=== PATIENT | female | born 2000 | race Caucasian/White ===

== ENCOUNTER → 2022-02-10 13:07 | Outpatient (CLI) | payer BC, SELFPAY ==
--- NOTE | ~2022-02-10 | US_ITS ---
EXAMINATION: US transvaginal DATE: 02/10/2022 13:35 INDICATION: Polycystic ovarian disease TECHNIQUE: Multiple transabdominal and endovaginal sonographic images of the pelvis were obtained. COMPARISON: None. FINDINGS: The uterus measures 6.5 x 3.5 x 3.4 cm. The endometrial complex measures 3 mm in thickness. The righ t ovary measures 3.3 x 2.3 x 2.2 cm. The left ovary measures 3.2 x 2.0 x 1.7 cm. There is normal vasc ular flow in the ovaries. There are multiple subcentimeter anechoic ovarian cysts at both the left an d right ovaries which would be consistent with provided history of cystic ovarian disease. There is n o free fluid in the pelvis. IMPRESSION: 1. Multiple subcentimeter anechoic cysts at the bilateral ovaries which can be seen with polycystic o varian disease. Reviewed, dictated and finalized at location B. IMPRESSION: 1. Multiple subcentimeter anechoic cysts at the bilateral ovaries which can be seen with polycystic ovarian disease.
== END ==
PROVIDERS: PCP Internal Medicine Endocrinology, Diabetes & Metabolism; Visit Provider Internal Medicine Endocrinology, Diabetes & Metabolism
DX: E28.2 Polycystic ovarian syndrome (principal)
CPT/HCPCS: 76830

== ENCOUNTER 2022-04-06 15:28 | Emergency (ER) | payer BC, SELFPAY ==
--- NOTE | 2022-04-06 15:35 | ED.URI ---
HPI - URI/Sore Throat General Chief Complaint: Upper Respiratory Infection Stated Complaint: swollen throat; trouble breathing Time Seen by Provider: 04/06/22 15:35 Source: patient and RN notes reviewed Mode of arrival: ambulatory Limitations: no limitations History of Present Illness HPI Narrative: 21 y/o female presented for c/o sore throat and feeling like throat is closing up over the last 2 days. Endorses difficulty breathing. States yesterday she had trouble swallowing solid food, today she feels it is getting harder to swallow liquids. Currently maintaining secretions. Denies wheezing but unable to speak full sentences. Denies significant past medical/surgical history. Allergy to Sulfa, denies food allergies or contact with anything new. Denies sick contacts. Taking ibuprofen without relief. MD elicited complaint: cough Related Data Home Medications Medication Instructions Recorded Confirmed Lactobacillus rhamnosus GG 5 1 tablet PO DAILY 11/02/21 billion cell chewable tablet ([employer]) cetirizine 10 mg tablet (Zyrtec) 10 mg PO DAILY PRN 11/02/21 clomipramine 50 mg capsule 50 mg PO DAILY 11/02/21 ergocalciferol (vitamin D2) 1,250 1,250 mcg PO 3XW 11/02/21 mcg (50,000 unit) capsule methylphenidate HCl 30 mg biphasic 36 mg PO DAILY 11/02/21 50-50 capsule,extended release (Ritalin LA) norethindrone (contraceptive) 0.35 0.35 mg PO DAILY 11/02/21 mg tablet omega-3 fatty acids-fish oil 340 1 cap PO DAILY 11/02/21 mg-1,000 mg capsule (Fish Oil) venlafaxine 150 mg 150 mg PO DAILY 11/02/21 capsule,extended release 24 hr (Effexor XR) Allergies Allergy/AdvReac Type Severity Reaction Status Date / Time Sulfa (Sulfonamide Allergy Rash Verified 04/06/22 15:53 Antibiotics) Review of Systems Review of Systems: CONSTITUTIONAL: Denies malaise, chills, sweats, fever EYES: Denies visual changes, redness, or discharge ENT: denies rhinorrhea, congestion, sinus pain, otalgia CARDIOVASCULAR: Denies chest pain, palpitations, edema RESPIRATORY: Denies wheezing or cough GASTROINTESTINAL: Denies abdominal pain, nausea, vomiting, diarrhea SKIN: Denies rash or itching MUSCULOSKELETAL: Denies myalgia NEUROLOGIC: Denies headache [facility] Past Medical History Medical History Allergies Anxiety Thyroid disorder Surgical History Surgical History History of placement of ear tubes Family History Family History Mother Thyroid disorder Crohn's disease Grandparent Hypertension Diabetes mellitus Cancer Heart disease Thyroid disorder HHT (hereditary hemorrhagic telangiectasia) Social History Social History Smoking status: Never smoker Alcohol intake: current Substance use: never Exam Narrative: GENERAL: Ill-appearing, no acute distress. EYES: conjunctivae clear ENT: Mucous membranes moist. Oropharynx erythematous, tonsillar swelling 3+ with exudate, right touching uvula; Pharyngeal swelling noted. Muffled voice. No tripod positioning. no drooling, no trismus, uvula midline. NECK: Right posterior cervical and bilateral anterior cervical lymphadenopathy CHEST: Clear to auscultation, breath sounds equal. HEART: Tachycardic, regular rhythm. No murmur heard. SKIN: Warm, moist NEURO: Alert and oriented x3. Course Course Emergency Course: Patient is aware of diagnosis, understands and agrees to treatment plan. Anticipatory guidance given. Portions of this record may have been created with voice recognition software Level of Care: Express Care Visit Vital Signs Vital signs: reviewed Transfer Transfer rationale: Pt is agreeable to transfer. Requests transfer to [facility] via private vehicle. Declines ambulance. Risks o
[2022-04-06 15:39] VITALS: BP 135/81; PULSE 119; RESP 24; TEMP 36.4; O2SAT 100
[2022-04-06] MEDS: methylPREDNISolone SOD SUCC 125 MG VIAL IM (15:51)
--- NOTE | 2022-04-06 16:03 | PC.NURSE ---
PT IS AGREEABLE TO TRANSFER, DUE DILIGENCE COORDINATOR HAS CALLED [facility] IN [place] PT REQUESTED. PT IS DECLINING EMS AT THIS TIME, SHE IS SPEAKING WITH FAMILY ON PHONE AND WILL NOTIFY OF FINAL DECISION. DELAY IN TRANSFER DUE TO THIS. WILL CONTINUE TO MONITOR.
--- NOTE | 2022-04-06 16:16 | PC.NURSE ---
PT REPORTS HER FATHER WILL TRANSPORT, SHE IS AWARE OF THE RISKS OF TRANSPORTING WITHOUT EMS, LEADING UP TO AND INCLUDING . AWAITING ARRIVAL OF FATHER AT THIS TIME. PT IS UNSURE OF WHICH ER THEY WILL GO TO AT PRESENT. WILL CONTINUE TO MONITOR.
[2022-04-06 16:28] VITALS: PULSE 120; RESP 24; O2SAT 99
--- NOTE | 2022-04-06 16:29 | PC.NURSE ---
FATHER ARRIVES, PT IS NOW GOING TO [facility] PER POV WITH FATHER. [facility] WAS NOTIFIED. PT AND FATHER ADVISED TO CALL 911 IF PT SX DECLINE EN ROUTE TO [facility]. PT AND FATHER ARE AWARE OF RISKS TO POV TRANSFER.
== END 2022-04-06 16:28 | disposition short-term general hospital (02) ==
PROVIDERS: Emergency Provider Nurse Practitioner Family; PCP Internal Medicine
DX: J39.2 Other diseases of pharynx (principal); F41.9 Anxiety disorder, unspecified
CPT/HCPCS: 87081; 87880; 96372; 99213; G0463; J2930

== ENCOUNTER 2022-04-06 16:44 | Emergency (ER) | payer BC, SELFPAY ==
--- NOTE | ~2022-04-06 | CT_ITS ---
EXAMINATION: CT soft tissue neck w con DATE: 04/06/2022 17:52 INDICATION: TECHNIQUE: Computed tomography (CT) of the neck was performed with 75 mL Omnipaque-350 intravenous co ntrast. Automated exposure control and iterative reconstruction technique were employed. The dose-mike gth product was 403.16 mGy-cm. COMPARISON: None FINDINGS: The thyroid gland is unremarkable. Bilateral submandibular gland enlargement, greater on the right. E nlarged adenoids. Enlarged somewhat heterogeneous bilateral palatine tonsils, greater on the right. N o striation or abscess. The parotid glands are symmetric. Enlarged submandibular lymph nodes. There are no masses identified. The superior mediastinum is unremarkable. The airway is unremarkable. Parapharyngeal and pre-glottic fat planes are preserved. Normal enhancing arteries. The orbits are unremarkable. Visualized sinuses and mastoid air cells are well aerated. Lung apices are efren r. Reversed cervical lordosis as can occur with positioning or muscle spasm. IMPRESSION: 1. No tonsillar or peritonsillar abscess detected. 2. Enlarged adenoids, bilateral palatine tonsils, and submandibular glands, with mild submandibular l ymphadenopathy. Reviewed, dictated and finalized at location K. STRENGTH INSPECTOR IMPRESSION: 1. No tonsillar or peritonsillar abscess detected. 2. Enlarged adenoids, bilateral palatine tonsils, and submandibular glands, wit h mild submandibular lymphadenopathy.
[2022-04-06 16:50] VITALS: BP 112/86; PULSE 103; RESP 22; TEMP 36.7; O2SAT 99
--- NOTE | 2022-04-06 16:50 | ED.GENADULT ---
HPI - General Adult General Chief complaint: Unspecified Stated complaint: PERITONSILLER ABSCESS Time Seen by Provider: 04/06/22 16:48 Source: patient Mode of arrival: ambulatory Limitations: no limitations History of Present Illness HPI narrative: Patient is a 21-year-old female who presents the ED with report of a sore throat. Patient reports she has had a sore and scratchy throat for the past 4 days. She started noticing swelling, more in the right side of her throat, yesterday. She reported having some difficulty swallowing and breathing today so she went to an urgent care today where she tested negative for strep throat. There was concern for a peritonsillar abscess and she was sent here for further evaluation. Patient given Solu-Medrol 125 mg prior to being sent here. She does report improvement already of her swelling. She has also had a mild cough, but denies nausea, vomiting, fevers, abdominal pain. Related Data Home Medications Medication Instructions Recorded Confirmed Lactobacillus rhamnosus GG 5 1 tablet PO DAILY 11/02/21 04/06/22 billion cell chewable tablet ([employer] Pro[employer]otics) cetirizine 10 mg tablet (Zyrtec) 10 mg PO DAILY PRN Allergic 11/02/21 04/06/22 Reaction clomipramine 50 mg capsule 50 mg PO DAILY 11/02/21 04/06/22 ergocalciferol (vitamin D2) 1,250 1,250 mcg PO 3XW 11/02/21 04/06/22 mcg (50,000 unit) capsule methylphenidate HCl 30 mg biphasic 36 mg PO DAILY 11/02/21 04/06/22 50-50 capsule,extended release (Ritalin LA) norethindrone (contraceptive) 0.35 0.35 mg PO DAILY 11/02/21 04/06/22 mg tablet omega-3 fatty acids-fish oil 340 1 cap PO DAILY 11/02/21 04/06/22 mg-1,000 mg capsule (Fish Oil) venlafaxine 150 mg 150 mg PO DAILY 11/02/21 04/06/22 capsule,extended release 24 hr (Effexor XR) Allergies Allergy/AdvReac Type Severity Reaction Status Date / Time Sulfa (Sulfonamide Allergy Rash Verified 04/06/22 16:50 Antibiotics) Review of Systems Review of Systems: CONSTITUTIONAL: Denies fever, chills, or sweats. ENT: Reports sore throat, mild dysphagia, R sided neck swelling. CARDIOVASCULAR: Denies chest pain. RESPIRATORY: Reports cough, mild dyspnea. GASTROINTESTINAL: Denies abdominal pain, nausea, vomiting. All systems reviewed & are unremarkable except as noted in HPI and below PMFSH Past Medical History Medical History Allergies Anxiety Thyroid disorder Surgical History Surgical History History of placement of ear tubes Family History Family History Mother Thyroid disorder Crohn's disease Grandparent Hypertension Diabetes mellitus Cancer Heart disease Thyroid disorder HHT (hereditary hemorrhagic telangiectasia) Social History Social History Smoking status: Never smoker Alcohol intake: current Substance use: never Exam Narrative: GENERAL: Well appearing, well-nourished, non-toxic, in no acute distress. HEAD: Normocephalic, atraumatic. EYES: PERRLA/EOMI, conjunctiva clear. ENT: Moderate posterior pharynx erythema. Moderate tonsillar hypertrophy, worse on right. Right tonsil nearly touching uvula. Uvula still appears midline. No significant tonsillar exudate. No stridor. No drooling. Maintaining secretions. NECK: Supple. Moderate amount of anterior cervical and submandibular lymphadenopathy, minimally tender. No masses. RESPIRATORY: Airway patent, respirations nonlabored. Clear to auscultation bilaterally, no rales, rhonchi, wheezing. CARDIOVASCULAR: Mild tachycardia with regular rhythm without murmurs, rubs, or gallops. Radial pulses 2+ and equal bilaterally. ABDOMINAL: Soft, nontender, nondistended, no hepatosplenomegaly. Normoactive BS. MUSCULOSKELETAL: Moves all extremities. Strength/R
[2022-04-06 17:01] VITALS: BP 119/88; PULSE 111; RESP 18; O2SAT 99
[2022-04-06] MEDS: AMPICILLIN SULB 3 GM/NS 100 ML 3 GM/100 ML VIAL IVPB (17:10)
[2022-04-06] MEDS: SODIUM CHLORIDE 0.9% IV 1,000 ML 999 ML IV CONT (17:13)
[2022-04-06 17:19] LABS: Basophils Absolute Auto 0.1 K/mm3 (0.0-0.1); Basophils Percent Auto 0.9 % (0.2-1.2); Hematocrit 47.2 % (37.0-47.0); Immature Granulocyte Absolute 0.04 K/mm3 (0.00-0.031); Immature Granulocyte Percent A 0.3 % (0-0.5); Lymphocytes Absolute Auto 7.54 K/mm3 (0.9-3.2); Lymphocytes Percent Auto 59.4 % (18.3-44.2); Mean Corpuscular HGB Conc 31.8 g/dl (32-36); Mean Corpuscular Hemoglobin 28.4 pg (26-34); Mean Corpuscular Volume 89.4 fl (80-100); Mean Platelet Volume 9.3 fl (7.4-10.4); Monocytes Absolute Auto 0.8 K/mm3 (0.1-0.6); Monocytes Percent Auto 6.3 % (2.6-8.5); Neutrophils Absolute Auto 4.2 K/mm3 (1.3-6.7); Neutrophils Percent Auto 33.1 % (45.5-73.1); Platelet Count Result 228 k/mm3 (150-375); Red Blood Count 5.28 M/mm3 (4.2-5.4); Red Cell Distribution Width 14.4 % (11.5-14.5); White Blood Count 12.7 K/mm3 (4.5-10.0)
[2022-04-06 17:29] LABS: Alanine Aminotransferase 338 U/L (6-35); Albumin Level 4.7 g/dL (3.5-5.1); Alkaline Phosphatase 206 U/L (38-126); Anion Gap 7 mmol/L (8-16); Aspartate Amino Transferase 183 U/L (14-36); Bilirubin,Total 0.5 mg/dL (0.2-1.3); Blood Urea Nitrogen 12 mg/dL (7-17); Calcium 9.7 mg/dL (8.4-10.2); Carbon Dioxide 33 mmol/L (22-30); Chloride 102 mmol/L (98-107); Estimated CRCL calculation 80 ml/min; Estimated Glomerular Filt Rate > 60; Glucose 99 mg/dL (65-110); Potassium 3.8 mmol/L (3.4-5.0); Sodium 142 mmol/L (137-145)
[2022-04-06 17:31] VITALS: BP 110/81; PULSE 98; RESP 21; O2SAT 99
[2022-04-06 17:43] LABS: Atypical Lymphocytes Present; Platelet Estimate Adequate (Adequate); Schistocytes None Seen (NORMAL)
[2022-04-06 19:00] VITALS: BP 95/69; PULSE 82; RESP 22; O2SAT 96
[2022-04-06 19:36] LABS: Influenza A QL RT-PCR Negative (Negative); Influenza B QL RT-PCR Negative (Negative); SARS-CoV-2 RNA PCR Negative
[2022-04-06 20:14] LABS: Monoscreen Positive (Negative); Negative Monotest Control Negative (Negative); Positive Monotest Control Positive (Positive)
[2022-04-06 20:25] VITALS: BP 109/79; PULSE 88; RESP 20; O2SAT 96
== END 2022-04-06 20:27 | disposition home or self-care (01) ==
PROVIDERS: Emergency Provider Physician Assistant; PCP Internal Medicine
DX: J03.90 Acute tonsillitis, unspecified (principal); R59.9 Enlarged lymph nodes, unspecified; R74.01 Elevation of levels of liver transaminase levels; Z20.822 Contact with and (suspected) exposure to COVID-19; E07.9 Disorder of thyroid, unspecified; F41.9 Anxiety disorder, unspecified
CPT/HCPCS: 36415; 70491; 80053; 81025; 85025; 86308; 87081; 87636; 87880; 96365; 96372; 99284; J0295; J2930; J7030; Q9967

== ENCOUNTER 2022-04-12 08:46 | Outpatient (CLI) | payer BC, SELFPAY ==
[2022-04-12 18:40] LABS: Hematocrit 41.9 % (37.0-47.0); Hemoglobin 13.4 g/dL (12.0-15.0); Mean Corpuscular Hemoglobin 27.8 pg (26-34); Mean Corpuscular Volume 86.9 fl (80-100); Mean Platelet Volume 9.2 fl (7.4-10.4); Platelet Count Result 304 k/mm3 (150-375); Red Blood Count 4.82 M/mm3 (4.2-5.4); Red Cell Distribution Width 13.7 % (11.5-14.5); White Blood Count 7.5 K/mm3 (4.5-10.0)
[2022-04-12 20:08] LABS: Band Neutrophils Percent 2 % (0-6); Lymphocytes Absolute Manual 3.97 K/mm3 (1.1-4.5); Monocytes Absolute Manual 0.82 K/mm3 (0.1-0.90); Monocytes Percent Manual 11 % (3-9); Neutrophils Percent Manual 34 % (46-73); Total Cells Counted 100
[2022-04-12 20:09] LABS: Platelet Estimate Adequate (Adequate); Schistocytes None Seen (NORMAL)
[2022-04-12 20:10] LABS: Atypical Lymphocytes Present
[2022-04-12 22:17] LABS: Alanine Aminotransferase 104 U/L (6-35); Albumin Level 4.1 g/dL (3.5-5.1); Alkaline Phosphatase 106 U/L (38-126); Anion Gap 6 mmol/L (8-16); Aspartate Amino Transferase 58 U/L (14-36); Bilirubin,Total 0.3 mg/dL (0.2-1.3); Blood Urea Nitrogen 12 mg/dL (7-17); Calcium 8.6 mg/dL (8.4-10.2); Carbon Dioxide 29 mmol/L (22-30); Chloride 100 mmol/L (98-107); Estimated Glomerular Filt Rate > 60; Glucose 88 mg/dL (65-110); Sodium 135 mmol/L (137-145)
== END 2022-04-12 08:47 | disposition home or self-care (01) ==
LOC: ANHGOSHLAB 08:48
PROVIDERS: PCP Internal Medicine; Visit Provider Clinical Nurse Specialist
DX: B27.90 Infectious mononucleosis, unspecified without complication (principal)
CPT/HCPCS: 36415; 80053; 85025

== ENCOUNTER 2023-09-22 14:10 | Outpatient (CLI) | payer OTHER, BC, SELFPAY ==
--- NOTE | ~2023-09-22 | US_ITS ---
EXAMINATION: US transvaginal DATE: 09/22/2023 15:16 INDICATION: Amenorrhea. TECHNIQUE: Multiple transvaginal sonographic images of the pelvis were obtained. COMPARISON: None. FINDINGS: The uterus measures 7.6 x 3.7 x 3.5 cm. There is no free fluid in the pelvis. The endometrial complex measures 8 mm in thickness. The right ovary measures 2.9 x 4.8 x 2.8 cm. The left ovary measures 3.4 x 2.3 x 2.7 cm. There is normal vascular flow in the ovaries. IMPRESSION: 1. Normal pelvis. Reviewed, dictated and finalized at location E. IMPRESSION: 1. Normal pelvis.
--- NOTE | ~2023-09-22 | US_ITS ---
EXAMINATION: US thyroid DATE: 09/22/2023 15:16 INDICATION: Thyroid nodules. TECHNIQUE: Multiple ultrasound images of the thyroid were obtained. COMPARISON: Neck CT 04/06/2022 FINDINGS: The right thyroid lobe measures 5.9 x 1.5 x 1.2 cm. The left thyroid lobe measures 5.4 x 1.1 x 1.6 c m. In the left thyroid lobe, there is a 2 mm nodule. IMPRESSION: 1. Small thyroid nodule, likely not clinically significant. No follow-up is needed. Reviewed, dictated and finalized at location E. IMPRESSION: 1. Small thyroid nodule, likely not clinically significant. No follow-up is nee ded.
== END 2023-09-22 14:11 ==
PROVIDERS: PCP Internal Medicine; Visit Provider Internal Medicine Endocrinology, Diabetes & Metabolism
DX: N91.2 Amenorrhea, unspecified (principal); E04.1 Nontoxic single thyroid nodule
CPT/HCPCS: 76536; 76830

== ENCOUNTER 2024-03-31 14:38 | Emergency (ER) | payer OTHER, SELFPAY ==
[2024-03-31 15:50] VITALS: BP 113/68; PULSE 92; RESP 18; TEMP 36.4; O2SAT 99
--- NOTE | 2024-03-31 16:22 | ED.URI ---
HPI - URI/Sore Throat General Chief Complaint: Upper Respiratory Infection Stated Complaint: flu symptoms Time Seen by Provider: 03/31/24 16:20 Source: patient, RN notes reviewed and old records reviewed Mode of arrival: ambulatory Limitations: no limitations History of Present Illness HPI Narrative: 23 year old female presents to [facility] care with complaints of fever, chills, body aches, nausea, sore throat with white spots since Monday with fevers up to 104F. Patient reports that she has been taking Tylenol and Ibuptofen for her symptoms. Patient reports that she has had history of past strep throat. MD elicited complaint: fever, sore throat and other (body aches, chills weakness nausea) Onset (ago): day(s) (3) Pain scale (0-10): 4 Able to tolerate fluids by mouth: Yes Treatments prior to arrival: acetaminophen and ibuprofen Related Data Allergies Allergy/AdvReac Type Severity Reaction Status Date / Time methylprednisolone Allergy Mild Blurry Verified 03/31/24 15:59 Vision Sulfa (Sulfonamide Allergy Rash Verified 03/31/24 15:59 Antibiotics) Review of Systems Review of Systems: CONSTITUTIONAL: reports malaise, chills, sweats, or fever. EYES: Denies visual changes, redness, or discharge. ENT: Reports rhinorrhea, congestion, no sinus pain, no otalgia and positive for sore throat. CARDIOVASCULAR: Denies chest pain, palpitations, or edema. RESPIRATORY: Reports no acute cough.? Denies dyspnea. GASTROINTESTINAL: Denies abdominal pain,reports some nausea, no vomiting,no diarrhea SKIN: Denies rash or itching. MUSCULOSKELETAL: Reports myalgia. NEUROLOGIC: Denies headache. All systems reviewed & are unremarkable except as noted in HPI and below PMFSH Past Medical History Medical History Strep throat Thyroid disorder Anxiety Allergies Surgical History Surgical History History of placement of ear tubes Family History Family History Mother Thyroid disorder Crohn's disease Grandparent Hypertension Diabetes mellitus Cancer Heart disease Thyroid disorder HHT (hereditary hemorrhagic telangiectasia) Social History Social History Smoking status: Never smoker Alcohol intake: current Substance use: never Lack of Transportation: No Lack of Food: Never True Current Housing: I Have Housing Concerned About Future Housing: No Difficulty Paying Gas/Electric Bills: No Difficulty Paying for Meds: No Currently Unemployed: No Education: High School Diploma/GED Difficulty w/ Childcare or Family Care: No Comments At time of signature, agree with nursing past medical, surgical, social and family history. There is no relevant family history pertinent to the presenting complaint Exam Narrative: GENERAL: Ill appearing, well-nourished, and in no acute distress. HEAD: Normocephalic EYES: PERRLA, conjunctivae clear ENT: Nares clear, turbinates edematous and erythematous, clear discharge. Mucous membranes moist. TM pearly jain with dull light reflex bilaterally; no tragal tenderness. Oropharynx erythematous without lesions. Tonsils red enlarged and with white exudate, no drooling, no hoarseness, no trismus, uvula midline but red post nasal drainage noted also.. NECK: Supple. lymphadenopathy CHEST: Clear to auscultation, breath sounds equal. No wheezing, rhonchi, rales, or stridor. No respiratory distress, speaks in full sentences.no cough noted SAO2 99% on room air HEART: Regular rate and rhythm. No murmur heard. SKIN: Warm, dry, no rash. NEURO: Alert and oriented x3. PSYCH: Normal mood and affect Course Course Emergency Course: Patient is aware of diagnosis, understands and agrees to treatment plan.? Anticipatory guidance given.? Patient agrees to follow-up as directed and is aware of reasons to seek care at the emergency department. Portions of this record may have been created with voice recognition software Level of Care: Express Care Visit Vital Signs Vital signs: Vital Signs Temperature 36.4 C L 03/31/24 15:50 Pulse Rate 92 03/31/24 15:50 Respiratory Rate 18 03/31/24 15:50 Blood Pressure 113/68 03/31/24 15:50 Pulse Oximetry 99 03/31/24 15:50 Oxygen Delivery Room Air 03/31/24 15:50 Temperature 36.4 C L 03/31/24 15:50 Pulse Rate 92 03/31/24 15:50 Respiratory Rate 18 03/31/24 15:50 Blood Pressure 113/68 03/31/24 15:50 Pulse Oximetry 99 03/31/24 15:50 Oxygen Delivery Room Air 03/31/24 15:50 Reviewed MDM - URI/Sore Throat MDM Narrative Medical decision making narrative: Differential diagnosis considered: Walter virus, strep pharyngitis, allergic rhinitis, upper respiratory tract infection, sinusitis, rhinosinusitis, nasopharyngitis. viral pharyngitis, otitis media, otitis externa, pneumonia, bronchitis, viral cough syndrome, viral syndrome, and influenza.? Exam findings show no acute concerns or changes; patient is non-toxic appearing and is in no distress.? Patient is appropriate for outpatient treatment and follow-up. Differential Diagnosis Differential diagnosis: Likely upper respiratory infection, sinusitis, viral infection, influenza, pharyngitis and other (strep pharyngitis, COVID) Medical Records Attestation: I reviewed the patient's medical records. Lab Data Attestation: I reviewed the patient's lab results. Lab results narrative: strep screen positive, covid antigen negative, Influenza A negative, Influenza B negative Labs: Lab Results 03/31/24 03/31/24 Range/Units 16:29 16:30 POC Influenza A Ag Negative (Negative) POC Influenza B Ag Negative (Negative) POC SARS CoV-2 Ag Negative (Negative) POC Grp A Strep Screen Positive (Negative) Critical Care Time Critical Care Time Critical Care Time: No Discharge Plan Discharge Clinical Impression: Acute streptococcal pharyngitis Patient Disposition: Home, Self-Care Condition: Stable Instructions: Antibiotic Form, Strep Throat (ED) Additional Instructions: You tested positive for Group A strep . Take the entire course of antibiotics. Throw away your current toothbrush and begin using a new toothbrush in 48 hours in order to prevent re-infection. Sanitize all reusable water bottles . Do not share items with others. Salt water gargles may alleviate some of the throat discomfort. You can take tylenol or ibuprofen per the package instructions for pain/fever. you are considered contagious until you have been on oral antibiotics for 24 hours If your symptoms persist, change or worsen significantly before you can contact your personal physician then please, without delay, go to the emergency department for further evaluation. Follow-up with PCP in 7-10 days or sooner if needed Patient Language: [place] Island[place] Prescriptions: New amoxicillin 500 mg capsule 500 mg PO Q8H Qty: 30 0RF Rx Instructions: take all of doses Follow-up/Referrals: Rocael Henry DO [Primary Care Provider] - Time of Disposition: 16:34 Quality Elroy Coma Scale Eyes: Open Verbal: Oriented and Alert Motor: Follows Commands Elroy Coma Total Score: 15
[2024-03-31 16:31] LABS: EDCOVIDSCREEN Negative (Negative)
[2024-03-31 16:31] LABS: EDINFLUASCREEN Negative (Negative); EDINFLUBSCREEN Negative (Negative)
[2024-03-31 16:32] LABS: EDSTREPNEGPOS1 Positive (Negative)
--- OUTSIDE RECORDS SUMMARY | 2024-04-07 23:31 | XMS_ITS | Encounter Summary ---
Author Organization [facility] Address [address] [facility] [place] [address] Care Team Providers Care Gravity Meter Operator Name Role Phone yTler Brantley MD Primary Care Provider [phone] Reason for Visit * Reason Comments Pain Knee Left knee pain Encounter Details Date Type Department Care Team (Late st Contact Info) Description 02/28/2014 2:20 PM CRIME SCENE EVIDENCE TECHNICIAN - 02/28/2014 2:44 PM CRIME SCENE EVIDENCE TECHNICIAN Hospital Encounter [facility] Pediatrics - Orthopedics [address] [facility] [place] [address] Ej Velez MD [address] [facility] DIV OF [place] [address] Discharge Disposition: Home or Self Care Social History Tobacco Use Types Packs/Day Years Used Date Smoking Tobacco: Never Assessed Sex and Gender Information Value Date Recorded Sex Assigned at Not on file Gender Identity Not on file Sexual Orientation Not on file documented as of this encounter Discharge Instructions * Patient Instructions* Ej Velez MD - 02/28/2014 3:30 PM CRIME SCENE EVIDENCE TECHNICIAN Images from the original note were not included. [facility] Department of Orthopaedic Surgery Adult and Pediatric Sports Medicine Orthopaedic Sports Medicine Clinic Discharge Form MD Juan Antonio Tuttle 02/28/2014 Thank you for coming in to see us today for your left knee contusion injury. This is a school excuse note for today. We recommend that you try the following to help you heal and feel better: icing 20 minutes at a time, 3 to 5 times daily, physical therapy exercises, anti-inflammatory medications and restrain from PE, cheerleading, and other physical activities until Dec. 1. Please call our clinic to make an appointment if your symptoms are not improving, or if something about your condition significantly changes. [facility] office contact information: [facility] [address] [place] [address]. [address] [facility] 2nd Floor, [address] [facility] [address] [address] [facility]) or [address] [place] [address] [facility] Orthopaedics & Sports Medicine [address] [facility], [place]. [address], [place] [address] Please contact Jevon Tony (clinical nurse specialist) at or email: [email or web address] if you have any further questions or concerns. E SCENE EVIDENCE TECHNICIAN documented in this encounter Progress Notes * Ej Velez MD - 02/28/2014 3:15 PM CST Images from the original note were not included. Ej Velez MD ORTHOPAEDIC SPORTS MEDICINE [address] [place] [address] Dept: [phone] Tyler Brantley ; Today we had the pleasure of seeing Juan Antonio Reich in [facility] Orthopa[facility] Medicine [facility] at [facility] for evaluation of her left knee injury. Juan Antonio Reich is a 13 y.o. female who 2 1/2 weeks ago sustained a left knee injury. Her knee gaveout while walking after [employer] leading practice. She fell toward her left side. There was immediateswelling of her left knee and lateral pain. She does not recall if there was any bruising. Pain hasbeen consistent since, swelling has improved. No prior injury. The symptoms are activity-related and improved with rest. No fevers, chills, numbness, paresthesias or gross motor weakness. They have tried icing, activity modification and crutches for their symptoms. Medications No current outpatient prescriptions on file prior to encounter. No current facility-administered medications on file prior to encounter. Allergies as of 02/28/2014 ??? (No Known Allergies) Past Medical History Diagnosis Date ??? NEGATIVE PAST MEDICAL HISTORY - SEE PROBLEM LIST Past Surgical History Procedure Laterality Date ??? Tympanostomy 15 Point review of systems was otherwise negative as reviewed today. Social History Occupational History ??? Not on file. Social History Main Topics ??? Smoking status: Not on file ??? Smokeless tobacco: Not on file ??? Alcohol Use: Not on file ??? Drug Use: Not on file ??? Sexual Activity: Not on file Family History No family history on file. Physical Exam: The patient is awake, alert, oriented and they are pleasant to speak with. There is no pain with rotation of the right or left hip. There is a negative straight leg raise bilaterally. Gait is normal.Evaluation of the uninjured right knee noted no skin lesions, neurovascularly intact. There is no te nderness/swelling/deformity. Ligamentously stable. Full range of motion. Quadriceps strength is 5/5. The left knee is neurovascularly intact with no active skin lesions. There is a trace effusion. There is tenderness of the lateral joint line, lateral facet of the patella and lateral femoral condyle. Range of motion is restricted secondary to pain, loss of 5 degrees extension and has 110 degrees flexion. Fiona is negative. Quad strength is 5/5. There is no varus laxity. There is no valgus laxity. There is no posterior sag. McMurrays test is negative. Dial test is negative. The extensor mechanism is intact. The patellar tracks well. Patellar apprehension test is negative. Testing for generalized ligamentous laxity is negative. Imaging: knee X-rays and MRI images reviewed by me are positive for distal lateral femoral contusion and soft tissue swelling, no ligamentous injury or meniscus injury noted. Impression: Distal femoral contusion left knee Plan: We recommended that they try the following to treat their injury: icing 20 minutes at a time, 3 to 5 times daily, physical therapy exercises, anti- inflammatory medications and Activity modification for a week. We will gladly see her back if she is not improving in the future. Please do not hesitate to contact me with questions regarding her or any other patient in the future. Our clinical nurse, Jevon Tony, can be reached at and by email at [email or web address]. My personal email is [email or web address]. Sincerely, Ej Velez MD E SCENE EVIDENCE TECHNICIAN * GianniMarino gentile Ana Paula - 02/28/2014 2:31 PM CST Two Mondays ago was just walking and Left knee gave out. Had some swelling but better. Pain of 3 or4 today. Using crutches because hurts and was told not to bear weight. Has xrays and MRI from OSH. E SCENE EVIDENCE TECHNICIAN documented in this encounter Plan of Treatment Not on file documented as of this encounter Results * XR KNEE 4+ VW LEFT (02/28/2014 3:05 PM CRIME SCENE EVIDENCE TECHNICIAN) Anatomical Region Laterality Modality Lower Extremity Radiographic Cristal ging 02/28/2014 3:15 PM CRIME SCENE EVIDENCE TECHNICIAN Impressions 02/28/2014 3:30 PM CRIME SCENE EVIDENCE TECHNICIAN No acute osseous abnormality involving the left knee. Report dictated by Mirella Rivera M.D. I, Ting Tao, have personally reviewed the images and I agree with this report. Narrative 02/28/2014 3:30 PM CRIME SCENE EVIDENCE TECHNICIAN Examination: Left knee, 4 views Date: February 28, 2014 History: 13-year-old female with knee pain. Findings: The osseous structures are intact and well aligned. There is no joint effusion. The adjacent soft tissues are normal. Procedure Note Kimberly Deleon MD - 02/28/2014 Examination: Left knee, 4 views Date: February 28, 2014 History: 13-year-old female with knee pain. Findings: The osseous structures are intact and well aligned. There is no joint effusion. The adjacent soft tissues are normal. IMPRESSION No acute osseous abnormality involving the left knee. Report dictated by Mirella Rivera M.D. I, Ting Tao, have personally reviewed the images and I agree with this report. Ej Velez MD DIAGNOSTIC IMAGING O [facility] documented in this encounter Visit Diagnoses Diagnosis Left knee pain- Primary Pain in joint, lower leg Left knee pain Pain in joint, lower leg documented in this encounter Care Teams Gravity Meter Operator Relationship Specialty Start Date End Date Tyler Brantley MD PCP - General Family Medicine 02/28/14 documented as of this encounter
--- OUTSIDE RECORDS SUMMARY | 2024-04-07 23:31 | XMS_ITS | Encounter Summary ---
Author Organization [facility] Address [address] [facility] [place] [address] Care Team Providers Care Hunting Guide Name Role Phone Tyler Brantley MD Primary Care Provider [phone] Encounter Details Date Type Department Care Team (Late st Contact Info) Description 02/28/2014 2:45 PM SHIRT HEMMER - 02/28/2014 11:59 PM SHIRT HEMMER Hospital Encounter [facility] Pediatrics - Radiology [address] [place] [address] Ej Velez MD [address] [facility] [place] [address] Discharge Disposition: Home or Self Care Social History Tobacco Use Types Packs/Day Years Used Date Smoking Tobacco: Never Assessed Sex and Gender Information Value Date Recorded Sex Assigned at Not on file Gender Identity Not on file Sexual Orientation Not on file documented as of this encounter Plan of Treatment Not on file documented as of this encounter Procedures Procedure Name Priority Date/Time Associated Diagnosis Comments XR KNEE LEFT 4VW OR MORE Routine 02/28/2014 3:05 PM SHIRT HEMMER Left knee pain documented in this encounter Results * XR KNEE 4+ VW LEFT (02/28/2014 3:05 PM SHIRT HEMMER) Anatomical Region Laterality Modality Lower Extremity Radiographic Cristal ging 02/28/2014 3:15 PM SHIRT HEMMER Impressions 02/28/2014 3:30 PM SHIRT HEMMER No acute osseous abnormality involving the left knee. Report dictated by Mirella Rivera M.D. I, Kimberly Deleon, have personally reviewed the images and I agree with this report. Narrative 02/28/2014 3:30 PM SHIRT HEMMER Examination: Left knee, 4 views Date: February [...] Report dictated by Mirella Rivera M.D. I, Kimberly Deleon, have personally reviewed the images and I agree with this report. Ej Velez MD DIAGNOSTIC IMAGING O [facility] documented in this encounter Visit Diagnoses Diagnosis Left knee pain Pain in joint, lower leg documented in this encounter Care Teams Hunting Guide Relationship Specialty Start Date End Date Tyler Brantley MD PCP - General Family Medicine 02/28/14 documented as of this encounter
--- OUTSIDE RECORDS SUMMARY | 2024-04-07 23:31 | XMS_ITS | Referral Summary ---
Author Organization [facility] Address [address] [place] [address] Care Team Providers Care Pin Drafting Machine Tender Name Role Phone Tyler Brantley MD Primary Care Provider Source Comments [facility],non-owned Affiliates and Associated Physician Practices is amultiple site organization consisting of ambulatory clinics and hospital sitesin [place], [place], [place] and [place]. This disclosure is being madepursuant to the Care Everywhere program and may not contain all information available regarding this patient. Last updated 17.[facility] Scaled Inference Allergies No known active allergies Medications Be aware that medications may not be up to date on this document. Always verify current medications with the patient. No known medications Active Problems Problem Noted Date Diagnosed Date Pain in joint, lower leg 02/28/2014 Social History Tobacco Use Types Packs/Day Years Used Date Smoking Tobacco: Never Assessed Sex and Gender Information Value Date Recorded Sex Assigned at Not on file Gender Identity Not on file Sexual Orientation Not on file Plan of Treatment Not on file Care Teams Pin Drafting Machine Tender Relationship Specialty Start Date End Date Tyler Brantley MD PCP - General Family Medicine 02/28/14
--- OUTSIDE RECORDS SUMMARY | 2024-04-07 23:31 | XMS_ITS | Clinical Summary ---
Author Organization [facility] Address [address] [place] [address] Care Team Providers Care Physical Testing Supervisor Name Role Phone Tyler Brantley MD Primary Care Provider [phone] Source Comments [facility],non-owned Affiliates and Associated Physician Practices is amultiple site organization consisting of ambulatory clinics and hospital sitesin [place], [place], [place] and [place]. This disclosure is being madepursuant to the Care Everywhere program and may not contain all information available regarding this patient. Last updated 17.[facility] Allergies No known active allergies Medications Be [...] Orientation Not on file Plan of Treatment Health Maintenance Due Date Last Done Comments PAP SMEAR 2000 HIV SCREENING 06/13/2015 HPV VACCINE (1 - 3-dose series) 06/13/2015 CHLAMYDIA/GONORRHEA SCREENING 2016 HEPATITIS C SCREENING 06/08/2018 DTAP/TDAP/TD VACCINES (1 - Tdap) 06/13/2019 HEPATITIS B VACCINE (1 of 3 - 19+ 3-dose series) 06/13/2019 DEPRESSION SCREENING 04/10/2023 COVID-19 VACCINE (1 - 2023-2 5 season) 2023 INFLUENZA VACCINE (#1) 2023 ZOSTER VACCINE (1 of 2) 2050 HIB VACCINE Aged Out No longer eligi ble based on patient's age to complete this topic MENINGOCOCCAL VACCINE Aged Out No jamir darius eligible based on patient's age to complete this topic PNEUMOCOCCAL VACCINE Aged Out No long er eligible based on patient's age to complete this topic Care Teams Physical Testing Supervisor Relationship Specialty Start Date End Date Tyler Brantley MD PCP - General Family Medicine 02/28/14
--- OUTSIDE RECORDS SUMMARY | 2024-04-07 23:31 | XMS_ITS | Patient Health Summary ---
Author Organization [facility] Address [address] [place] [address] Care Team Providers Care Clinical Quality Assurance Specialist Name Role Phone Tyler Brantley MD Primary Care Provider [phone] Note from [facility],non-owned Affiliates and Associated Physician Practices is amultiple site organization consisting of ambulatory clinics and hospital sitesin [place], [place], [place] and [place]. This disclosure is being madepursuant to the Care Everywhere program and may not contain all information available regarding this patient. Last updated 17.[facility] Allergies No known active allergies Medications Be [...] on file Sexual Orientation Not on file Procedures * XR KNEE LEFT 4VW OR MORE(Performed 02/28/2014) Performed for Left knee pain Results * XR KNEE 4+ VW LEFT (02/28/2014 3:05 PM REAL ESTATE ACCOUNT EXECUTIVE) Anatomical Region Laterality Modality Lower Extremity Radiographic Cristal ging 02/28/2014 3:15 PM REAL ESTATE ACCOUNT EXECUTIVE Impressions 02/28/2014 3:30 PM REAL ESTATE ACCOUNT EXECUTIVE No acute osseous abnormality involving the left knee. Report dictated by Mirella Rivera M.D. IKimberly, have personally reviewed the images and I agree with this report. Narrative 02/28/2014 3:30 PM REAL ESTATE ACCOUNT EXECUTIVE Examination: Left knee, 4 views Date: February [...] report. Ej Velez MD DIAGNOSTIC IMAGING O [facility] Care Teams Clinical Quality Assurance Specialist Relationship Specialty Start Date End Date Tyler Brantley MD PCP - General Family Medicine 02/28/14
--- OUTSIDE RECORDS SUMMARY | 2024-04-07 23:32 | XMS_ITS | Encounter Summary ---
Author Organization [facility] Address [address] [place] [address]. [place] [address] [place] [address] Care Team Providers Care Registered Nurse Teacher Name Role Phone Unavailable Primary Care Provider Unavailabl e Encounter Details Date Type Department Care Team (Late st Contact Info) Description 08/04/2008 Abstract [facility] One Day Services [address] [place] [address] Vaibhav Dejesus MD [address] [place] [id number] Social History Tobacco Use Types Packs/Day Years Used Date Smoking Tobacco: Never Assessed Comments Unknown Sex and Gender Information Value Date Recorded Sex Assigned at Not on file Legal Sex Female 7:50 AM CDT Gender Identity Not on file Sexual Orientation Not on file documented as of this encounter Plan of Treatment Not on file documented as of this encounter Visit Diagnoses Not on filedocumented in this encounter
--- OUTSIDE RECORDS SUMMARY | 2024-04-07 23:32 | XMS_ITS | Encounter Summary ---
Author Organization [facility] Address [address] [place] [address]. [place], [place] [address] [place] [address] Care Team Providers Care Hand Mica Plate Layer Name Role Phone Unavailable Primary Care Provider Unavailabl e Encounter Details Date Type Department Care Team (Late st Contact Info) Description 11/02/2010 Abstract [facility] Conversion Md, Generic Conversion, Social History Tobacco Use Types Packs/Day Years [...]
--- OUTSIDE RECORDS SUMMARY | 2024-04-07 23:32 | XMS_ITS | Encounter Summary ---
Author Organization [facility] Address [address] [place] [address]. [place], [place] [address] [place] [address] Care Team Providers Care Supervisor Paper Testing Name Role Phone Unavailable Primary Care Provider Unavailabl e Encounter Details Date Type Department Care Team (Late st Contact Info) Description 01/20/2014 Abstract [facility] Conversion Brittany Mancia FNP Social History Tobacco Use Types Packs/Day Years Used Date Smoking Tobacco: Never Assessed Comments Unknown Sex and Gender Information Value Date Recorded Sex Assigned at Not on file Legal Sex Female 7:50 AM CDT Gender Identity Not on file Sexual Orientation Not on file documented as of this encounter Last Filed Vital Signs Vital Sign Reading Time Taken Comments Blood Pressure 100/62 01/20/2014 8:38 AM CDT Pulse 70 01/20/2014 8:38 AM CDT Temperature - - Respiratory Rate - - Oxygen Saturation - - Inhaled Oxygen Concentration - - Weight 48.5 kg (107 lb) 01/20/2014 8:38 AM CDT Height 162.6 cm (5' 4 ) 01/20/2014 8:38 AM CDT Body Mass Index 18.37 01/20/2014 8:38 AM CDT Body Mass Index Percentile 39.61% 01/20/2014 8:3 8 AM CDT Growth Chart: CDC (Girls, 2- 20 Years) documented in this encounter Plan of Treatment Not on file documented as of this encounter Visit Diagnoses Not on filedocumented in this encounter
--- OUTSIDE RECORDS SUMMARY | 2024-04-07 23:32 | XMS_ITS | Encounter Summary ---
Author Organization [facility] Address [address] [place] [address]. [place], [place] [address] [place] [address] Care Team Providers Care Harvest Field Ticketer Name Role Phone Unavailable Primary Care Provider Unavailabl e Encounter Details Date Type Department Care Team (Late st Contact Info) Description 06/05/2013 Abstract [facility] Conversion Md, Generic Conversion, Social History Tobacco [...]
--- OUTSIDE RECORDS SUMMARY | 2024-04-07 23:32 | XMS_ITS | Encounter Summary ---
Author Organization [facility] Address [address] [place] [address]. [place], [place] [address] [place] [address] Care Team Providers Care Java Web Engineer Name Role Phone Unavailable Primary Care Provider Unavailabl e Encounter Details Date Type Department Care Team (Late st Contact Info) Description 10/30/2014 Abstract [facility] Conversion Md, Generic Conversion, Social [...]
--- OUTSIDE RECORDS SUMMARY | 2024-04-07 23:32 | XMS_ITS | Encounter Summary ---
Author Organization [facility] Address [address] [place] [address]. [place], [place] [address] [place] [address] Care Team Providers Care Vice President Network Development Name Role Phone Unavailable Primary Care Provider Unavailabl e Encounter Details Date Type Department Care Team (Late st Contact Info) Description 02/13/2018 Abstract [facility] Conversion Md, Generic Conversion, Social History [...]
--- OUTSIDE RECORDS SUMMARY | 2024-04-07 23:32 | XMS_ITS | Encounter Summary ---
Author Organization [facility] Address [address] [place] [address]. [place], [place] [address] [place] [address] Care Team Providers Care Chief Financial Officer Name Role Phone Unavailable Primary Care Provider Unavailabl e Encounter Details Date Type Department Care Team (Late st Contact Info) Description 11/05/2012 Abstract [facility] Conversion Md, Generic Conversion, Social History [...] Sign Reading Time Taken Comments Blood Pressure 98/64 11/05/2012 1:41 PM CDT Pulse 64 11/05/2012 1:41 PM CDT Temperature - - Respiratory Rate - - Oxygen Saturation - - Inhaled Oxygen Concentration - - Weight 45.8 kg (101 lb) 11/05/2012 1:41 PM CDT Height 160 cm (5' 3 ) 11/05/2012 1:41 PM CDT Body Mass Index 17.89 11/05/2012 1:41 PM CDT Body Mass Index Percentile 43.39% 11/05/2012 1:4 1 PM CDT Growth Chart: CDC (Girls, 2- 20 Years) documented in this encounter Plan of Treatment Not on file documented as of this encounter Visit Diagnoses Not on filedocumented in this encounter
--- OUTSIDE RECORDS SUMMARY | 2024-04-07 23:32 | XMS_ITS | Encounter Summary ---
Author Organization [facility] Address [address] [place] [address]. [place], [place] [address] [place] [address] Care Team Providers Care Aviation Electrical Technician Name Role Phone Unavailable Primary Care Provider Unavailabl e Encounter Details Date Type Department Care Team (Latest Contact Info) Description 01/04/2022 Travel Social History Tobacco Use Types Packs/Day Years Used Date Smoking Tobacco: Never Assessed Comments Unknown Sex and Gender Information Value Date Recorded Sex Assigned at Not on file Legal Sex Female 7:50 AM CDT Gender Identity Not on file Sexual Orientation Not on file COVID-19 Exposure Response Date Recorded In the last 10 days, have yo u been in contact with someone who was confirmed or suspected to have Coronavirus/COVID-19? No / Unsure 01/04/2022 9:39 AM CDT documented as of this encounter Plan of Treatment Not on file documented as of this encounter Visit Diagnoses Not on filedocumented in this encounter
--- OUTSIDE RECORDS SUMMARY | 2024-04-07 23:32 | XMS_ITS | Encounter Summary ---
Author Organization [facility] Address [address] [place] [address]. [place] [address] [place] [address] Care Team Providers Care Icebox Man Name Role Phone Unavailable Primary Care Provider Unavailabl e Encounter Details Date Type Department Care Team (Late st Contact Info) Description 01/23/2005 Abstract [facility] Emergency Services [address] [facility] [place] [id number] Vaibhav Vyas MD [address] [place] [address] Social History Tobacco Use Types Packs/Day Years [...]
--- OUTSIDE RECORDS SUMMARY | 2024-04-07 23:32 | XMS_ITS | Encounter Summary ---
Author Organization [facility] Address [address] [place] [address]. [place], [place] [address] [place] [address] Care Team Providers Care Assistant Editor Name Role Phone Unavailable Primary Care Provider Unavailabl e Encounter Details Date Type Department Care Team (Late st Contact Info) Description 02/24/2014 Abstract [facility] Conversion Md, Generic Conversion, Social [...] Sign Reading Time Taken Comments Blood Pressure 104/70 02/24/2014 11:25 AM MOLD CAPPER HELPER Pulse 64 02/24/2014 11:25 AM MOLD CAPPER HELPER Temperature - - Respiratory Rate - - Oxygen Saturation - - Inhaled Oxygen Concentration - - Weight - - Height 162.6 cm (5' 4 ) 02/24/2014 11:25 AM MOLD CAPPER HELPER Body Mass Index - - documented in this encounter Plan of Treatment Not on file documented as of this encounter Visit Diagnoses Not on filedocumented in this encounter
--- OUTSIDE RECORDS SUMMARY | 2024-04-07 23:32 | XMS_ITS | Encounter Summary ---
Author Organization [facility] Address [address] [place] [address]. [place] [address] [place] [address] Care Team Providers Care Edge Burnisher Name Role Phone Unavailable Primary Care Provider Unavailabl e Encounter Details Date Type Department Care Team (Late st Contact Info) Description 07/08/2002 Abstract [facility] Diagnostic Imaging [address] [place] [address] Loretta Easley MD 209 [facility] 120 [place], [place] [id number] Social History Tobacco Use Types Packs/Day Years [...]
--- OUTSIDE RECORDS SUMMARY | 2024-04-07 23:32 | XMS_ITS | Encounter Summary ---
Author Organization [facility] Address [address] [place] [address]. [place], [place] [address] [place] [address] Care Team Providers Care Panel Instrument Repairer Name Role Phone Unavailable Primary Care Provider Unavailabl e Encounter Details Date Type Department Care Team (Late st Contact Info) Description 02/24/[address] [facility] Diagnostic Imaging [address] [place] [address] Social History Tobacco Use Types Packs/Day Years [...]
--- OUTSIDE RECORDS SUMMARY | 2024-04-07 23:32 | XMS_ITS | Encounter Summary ---
Author Organization [facility] Address [address] [place] [address]. [place], [place] [id number] [place] [address] Care Team Providers Care Dry Clipper Tender Name Role Phone Unavailable Primary Care Provider Unavailabl e Encounter Details Date Type Department Care Team (Late st Contact Info) Description 12/18/2001 Abstract [facility] Emergency Services [address] [place] [address] Justin Johnson MD Social History Tobacco Use Types Packs/Day Years [...]
--- OUTSIDE RECORDS SUMMARY | 2024-04-07 23:32 | XMS_ITS | Encounter Summary ---
Author Organization [facility] Address [address] [place] [address]. [place] [address] [place] [address] Care Team Providers Care Licensed Massage Therapist Name Role Phone Unavailable Primary Care Provider Unavailabl e Encounter Details Date Type Department Care Team (Late st Contact Info) Description 02/11/2018 Abstract [facility] Emergency Room [address] [place] [address] Kash Murillo MD [address] [address] Social History Tobacco Use Types Packs/Day Years [...] Procedure Name Priority Date/Time Associated Diagnosis Comments TEST URINE STAT 02/11/2018 1:42 AM CDT documented in this encounter Results * TEST URINE (02/11/2018 1:42 AM CDT) SPECIFIC GRAVITY (U) >1.030 02/11/2018 4:45 AM MANAGER [facility] PREG TEST NEGATIVE 02/11/2018 4:45 AM MANAGER [facility] 02/11/2018 1:42 AM CDT 02/11/2018 3:00 AM MANAGER ENVIRONMENTAL HEALTH us Generic Conversion Md LAYNE URINE ORDERABLES Final Result [facility] [address] [place] [address], documented in this encounter Visit Diagnoses Diagnosis Headache documented in this encounter
--- OUTSIDE RECORDS SUMMARY | 2024-04-07 23:32 | XMS_ITS | Encounter Summary ---
Author Organization [facility] Address [address] [place] [address]. [place] [address] [place] [address] Care Team Providers Care Frame Stripper And Crusher Name Role Phone Unavailable Primary Care Provider Unavailabl e Encounter Details Date Type Department Care Team (Late st Contact Info) Description 2000 Abstract [facility] [address] [place] [address] Loretta Easley MD 209 [facility] 120 [place], [place] [address] Social History Tobacco Use Types Packs/Day Years [...]
--- OUTSIDE RECORDS SUMMARY | 2024-04-07 23:32 | XMS_ITS | Encounter Summary ---
Author Organization [facility] Address [address] [place] [address]. [place] [address] [place] [address] Care Team Providers Care Personal Finance Instructor Name Role Phone Unavailable Primary Care Provider Unavailabl e Encounter Details Date Type Department Care Team (Late st Contact Info) Description 09/14/2005 Abstract [facility] [address] [place] [address] Loretta Easley MD 209 [facility] [address] [place], [place] [address] Social History Tobacco Use Types Packs/Day Years [...]
--- OUTSIDE RECORDS SUMMARY | 2024-04-07 23:32 | XMS_ITS | Clinical Summary ---
Author Organization [facility] Address [address] [place] [address]. [place], [place] [address] [place] [address] Care Team Providers Care Peer Educator Name Role Phone Unavailable Primary Care Provider Unavailabl e Immunizations Name Administration Dates Next Due Dtap (Acel-Immune) 08/24/2005, 2,2000,2000,2000 Dtap (Generic) 08/24/2005, 2,2000,2000,2000 Hepatitis B 06/11/2001,2000,2000 Hib (Generic) 06/11/2001,2000,2000 Hib-Hepatitis B (Comvax) 06/11/2001,2000,0 2000 Influenza Adult (Generic) 12/29/2021,01/22/2021 MMR (MMRII) 08/24/2005,06/11/2001 Pneumococcal (Prevnar 7) 06/11/2001,2000,0 2000,2000 Polio IPV (Ipol) 08/24/2005,2000, 1,2000 Tdap (Generic) 11/02/2021,08/30/2011 Varicella (Varivax) 06/11/2001 Social History Tobacco Use Types Packs/Day Years Used Date Smoking Tobacco: Never Assessed Comments Unknown Sex and Gender Information Value Date Recorded Sex Assigned at Not on file Legal Sex Female 7:50 AM CDT Gender Identity Not on file Sexual Orientation Not on file Last Filed Vital Signs Vital Sign Reading Time Taken Comments Blood Pressure 104/70 02/24/2014 11:25 AM BELLMAN Pulse 64 02/24/2014 11:25 AM BELLMAN Temperature - - Respiratory Rate - - Oxygen Saturation - - Inhaled Oxygen Concentration - - Weight 48.5 kg (107 lb) 01/20/2014 8:38 AM CDT Height 162.6 cm (5' 4 ) 02/24/2014 11:25 AM BELLMAN Body Mass Index 18.37 01/20/2014 8:38 AM CDT Plan of Treatment Health Maintenance Due Date Last Done Comments Cervical Cancer Screening Pap Smear (Age 21 to 29) Every 3 Years 2000 Cervical Cancer Screening 2000 Annual Physical 06/13/2003 HPV Vaccines (1 - 3-dose series) 06/13/2015 Hepatitis C 2018 COVID-19 Vaccine ( season) 2023 11/26/2020, 10/28/2020 Influenza Adult (#1) 2024 12/29/2021, 01/23/20 DTaP, Tdap and Td Vaccines (8 - Td or Tdap) 11/03/2031 11/02/2021, 08/30/2011, 08/24/2005, Additional history exists Hepatitis B Vaccines Completed 06/11/2001, 06/11/2001, 2000, Additional history exists Pneumococcal Vaccine: Pediatrics (0 to 5 Years) and At-Risk Patients (6 to 64 Years) Aged Out 06/11/2001, 2000, 2000, Additional history exists No longer eligible based on patient's age to complete this topic Meningococcal Vaccine Aged Out No jamir darius eligible based on patient's age to complete this topic RSV Immunizations Under 20 Months Aged Out No longer eligible based on patient's age to complete this topic
--- OUTSIDE RECORDS SUMMARY | 2024-04-07 23:32 | XMS_ITS | Encounter Summary ---
Author Organization [facility] Address [address] [place] [address]. [place] [address] [place] [address] Care Team Providers Care Paint Process Engineer Name Role Phone Unavailable Primary Care Provider Unavailabl e Encounter Details Date Type Department Care Team (Late st Contact Info) Description 06/30/2006 Abstract [facility] Surgical Services [address] [place] [address] Vaibhav Dejesus MD [address] [place] [address] Social History Tobacco Use Types Packs/Day [...]
--- OUTSIDE RECORDS SUMMARY | 2024-04-07 23:32 | XMS_ITS | Encounter Summary ---
Author Organization [facility] Address [address] [place] [address]. [place], [place] [id number] [place] [address] Care Team Providers Care Internet E Commerce Specialist Name Role Phone Unavailable Primary Care Provider Unavailabl e Encounter Details Date Type Department Care Team (Late st Contact Info) Description 10/06/2011 Abstract [facility] Conversion Brittany Mancia FNP Social History Tobacco [...] Sign Reading Time Taken Comments Blood Pressure 122/64 10/06/2011 10:51 AM CDT Pulse 74 10/06/2011 10:51 AM CDT Temperature - - Respiratory Rate - - Oxygen Saturation - - Inhaled Oxygen Concentration - - Weight 41.7 kg (92 lb) 10/06/2011 10:51 AM CDT Height 155.4 cm (5' 1.2 ) 10/06/2011 10:51 AM CD T Body Mass Index 17.27 10/06/2011 10:51 AM CDT Body Mass Index Percentile 44.06% 10/06/2011 10: 51 AM CDT Growth Chart: CDC (Girls, 2- 20 Years) documented in this encounter Plan of Treatment Not on file documented as of this encounter Visit Diagnoses Not on filedocumented in this encounter
--- OUTSIDE RECORDS SUMMARY | 2024-04-07 23:32 | XMS_ITS | Encounter Summary ---
Author Organization [facility] Address [address] [place] [address]. [place] [address] [place] [address] Care Team Providers Care Second Miller Name Role Phone Unavailable Primary Care Provider Unavailabl e Encounter Details Date Type Department Care Team (Late st Contact Info) Description 2000 Abstract [facility] CONVERSION [address] [place] [address] Loretta Easley MD 209 [facility] 120 [place] [address] Social History Tobacco Use Types Packs/Day Years [...]
== END 2024-03-31 16:46 | disposition home or self-care (01) ==
PROVIDERS: Emergency Provider Registered Nurse; PCP Internal Medicine
DX: J02.0 Streptococcal pharyngitis (principal); Z20.822 Contact with and (suspected) exposure to COVID-19
CPT/HCPCS: 87426; 87804; 87880; 99213; G0463